=== PATIENT | female | born 2000 | race Two or more races ===

== ENCOUNTER → 2019-02-28 | Outpatient (CLI) | payer BC, OTHER ==
[~2019-02-28] MED LIST: AMOCLA400S PO; AZIT100SU PO; CRUTCH4 USE; IBUP100S
[2019-02-28 16:15] LABS: Candida species (DNA Probe) Negative (NEGATIVE); G. vaginalis (DNA Probe) Negative (NEGATIVE); T. vaginalis (DNA Probe) Negative (NEGATIVE)
== END ==
LOC: LAB SHORT 14:39 → LAB 14:39
PROVIDERS: Nurse Practitioner
DX: N89.8 Other specified noninflammatory disorders of vagina (principal); R10.2 Pelvic and perineal pain
CPT/HCPCS: 87480; 87510; 87660